=== PATIENT | female | born 1990 | race Caucasian/White ===

== ENCOUNTER 2018-08-01 13:57 | Emergency (ER) | payer SELFPAY ==
[2018-08-01 14:04] VITALS: BP 113/70; PULSE 94; RESP 16; TEMP 36.4; O2SAT 99; BMI 21.2
[2018-08-01 15:49] LABS: Amorphous Sediment Urine 1+; Bacteria Urine Few (2-10); Culture Indicated Urine Specimen Cultured; Mucus Urine 1+ (Negative); RBC Urine 1-5/HPF (0-5/HPF); Squamous Epithelial Cell Urine 1-5 /HPF; WBC Urine 0-1/HPF (0-5/HPF)
--- NOTE | 2018-08-01 16:39 | ED_ITS ---
HPI - Extremity Problem General Chief complaint: Extremity Problem,Nontraumatic Stated complaint: Thinks flu, left leg numb Time Seen by Provider: 08/01/18 16:06 Source: patient Mode of arrival: ambulatory History of Present Illness HPI Narrative: Patient is a 27-year-old female here for evaluation of generalized malaise. No headache. But states she does not not feel very well. She did have a flu shot this year. Patient also here for complaints of left lower extremity numbness and tingling. She states that she has been moving her home over the past couple days and has been bending over. Does not have any lower back pain. No bowel or bladder issues. No rashes. Has not tried anything for her symptoms prior to arrival. Related Data Home Medications Medication Instructions Recorded Confirmed paroxetine HCl 10 mg PO DAILY 08/01/18 08/01/18 Previous Rx's Medication Instructions Recorded meloxicam [Mobic] 7.5 mg PO DAILY #60 tab 08/01/18 prednisone 50 mg PO DAILY #5 tab 08/01/18 sucralfate [Carafate] 10 ml PO QID #420 ml 08/01/18 Allergies Allergy/AdvReac Type Severity Reaction Status Date / Time NSAIDS (Non-Steroidal Allergy Mild STOMACH Verified 08/01/18 14:09 Anti-Inflamma UPSET [NSAIDS (NON-STEROIDAL ANTI-INFLAMMA] Penicillins [PENICILLINS] Allergy Unknown HIVES Verified 08/01/18 14:09 Review of Systems Constitutional Reports fatigue, Denies fever(s) and Reports weakness ENT Ears, Nose, Mouth, and Throat: Denies disequilibrium Cardiovascular Denies chest pain and Denies dyspnea Respiratory Denies dyspnea Gastrointestinal Gastrointestinal: Denies abdominal pain, Denies nausea and Denies vomiting Genitourinary Denies dysuria, Denies urinary incontinence, Denies urinary hesitancy and Denies urinary urgency Musculoskeletal Reports tingling Comments: Tingling down the back of her left leg Integumentary/Breasts Denies rash Neurologic Reports tingling, Denies disequilibrium and Reports weakness Endocrine Reports fatigue Hematologic/Lymphatic Comments: Not on anticoagulation Allergic/Immunologic Denies urticaria PFSH Medical History Healthy adult (Acute) Surgical History No pertinent past surgical history (Acute) History of third molar tooth extraction Social History Smoking Status: Current every day smoker Social History Smoking Status: Current every day smoker Exam Initial Vital Signs Initial Vital Signs: Vital Signs Temperature 97.6 F 08/01/18 14:04 Pulse Rate 94 H 08/01/18 14:04 Respiratory Rate 16 08/01/18 14:04 Blood Pressure 113/70 08/01/18 14:04 Pulse Oximetry 99 08/01/18 14:04 Const General: cooperative, healthy appearing, comfortable, well developed, well groomed and No acute distress Orientation: alert, awake and oriented x3 HENMT Head: normal to inspection and normocephalic Resp Effort & Inspection: normal respiratory effort Auscultation: clear to auscultation bilaterally Cardio Rate: regular rate Rhythm: regular rhythm Pulses: radial pulses present GI Inspection: non-distended Palpation: soft, No firm and No tender Back/Spine/Pelvis Back: No CVA tenderness Cervical Spine: No cervical spinal tenderness Thoracic/Lumbar Spine: No thoracic spinal tenderness and No lumbar spinal tenderness Skin Lesions: no lesions Rashes: no rashes Neuro Cognition: normal cognition Speech: speech normal Gait: normal gait Motor: muscle tone normal throughout Sensory Exam: other (Patient with decreased sensation along the L5-S1 nerve root distribution left lower extremity) DTR's: Rt Patellar: 2+, Lt Patellar: 2+, Rt Ankle: 2+ and Lt Ankle: 0 Other: 5/5 strength bilateral lower extremity with testing the quadriceps. 5/5 strength right lower extremity with plantar flexion. 3/5 strength left lower extremity with plantar flexion. Extrem General: normal to inspection and capillary refill normal Course Orders Ordered: ED Orders 08/01/18 14:08 FLU A and B [Influenza A and B by PCR Rapid] Stat 08/01/18 15:30 Urine Culture Stat Urine Microscopic Stat Vital Signs - 8 hr 08/01/18 14:04 08/01/18 16:41 Temperature 97.6 F Pulse Rate 94 H 67 Respiratory Rate 16 21 Blood Pressure 113/70 Blood Pressure [Left Arm] 110/64 Pulse Oximetry 99 99 MDM - Extremity (Nontraumatic) Lab Data Attestation: I reviewed the patient's lab results. Lab Results 08/01/18 08/01/18 Range/Units 14:08 15:30 Urine RBC 1-5/hpf (0-5/HPF) Urine WBC 0-1/hpf (0-5/HPF) Ur Squamous Epith Cells 1-5 /hpf Amorphous Sediment 1+ Urine Bacteria Few (2-10) H (None) Urine Mucus 1+ H (Negative) Ur Culture Indicated? Specimen cultured Influenza A & B (PCR) Positive, type a A (Negative) Urine Dip Bedside Urine Glucose Negative Bedside Urine Bilirubin - Negative Bedside Urine Ketone + 15 Urine Specific [place] 1.020 Bedside Urine Occult Blood - Negative Bedside Urine pH 6.0 Bedside Urine Protein +/- 15 Bedside Urine Urobilinogen - Negative Bedside Urine Nitrite - Negative Bedside Urine Leukocytes - Negative Esterase MDM Narrative Medical decision making narrative: Patient is flu positive despite having received the flu immunization earlier this year. I suspect this is the cause of her generalized malaise. Patient does have L5-S1 nerve root distribution symptoms in the left lower extremity. She does have some weakness of plantar flexion left lower extremity. No other red flag signs of cauda equina. I did consider other conditions such as spinal epidural abscess given her other generalized malaise however since she is positive for the flu I feel that holding on any MRIs currently is warranted. She denies any IV drug use or recent spinal procedures. Patient does state that she has an allergy to nonsteroidal anti-inflammatories however it is not an allergy she has had a gastric ulcer in the past. She stated that she has taken ibuprofen when she has been given Carafate in the past without any problems. Will send home with Carafate and also meloxicam. Also sent home with a short course of steroids. She was given return precautions. We did discuss Tamiflu however after this discussion the patient stated that she would like to hold on taking this medication. We did discuss the expected course of her symptoms. She was instructed to contact her primary care doctor. She expressed understanding and agreement with plan. Discharge Plan Departure Patient Disposition: Home Clinical Impression: Flu, Radiculopathy Discharge Date/Time: 08/01/18 17:13 Interventions: ED Discharge Assessment Last Done: 08/01/18 17:13 Instructions: DI for Influenza -- Adult, DI for Lumbar Radiculopathy Activity Restrictions/Additional Instructions: Take the medication as directed. Make sure you increase her fluid intake. She can take Tylenol for any body aches. Contact your primary care doctor for a follow-up. Return to the emergency department for any new or worsening symptoms Prescriptions: New sucralfate [Carafate] 100 mg/mL suspension 10 ml PO QID Qty: 420 RF: 0 meloxicam [Mobic] 7.5 mg tablet 7.5 mg PO DAILY Qty: 60 RF: 0 prednisone 50 mg tablet 50 mg PO DAILY Qty: 5 RF: 0 No Action paroxetine HCl 10 mg Tablet 10 mg PO DAILY RF: 0 Stand Alone Forms: Work Release Note
[2018-08-01 16:41] VITALS: BP 110/64; PULSE 67; RESP 21; O2SAT 99
== END 2018-08-01 17:13 | disposition home or self-care (01) ==
PROVIDERS: Emergency Provider Emergency Medicine; PCP Physician Assistant
DX: J11.1 Influenza due to unidentified influenza virus with other respiratory manifestations (principal); M54.10 Radiculopathy, site unspecified
CPT/HCPCS: 81003; 81015; 87086; 87400; 99282; 99283

== ENCOUNTER → 2019-05-09 16:02 | Outpatient (CLI) | payer OTHER, MEDICAID, SELFPAY ==
[2019-05-09 16:34] LABS: Add Manual Diff / Slide Review NO; Basophils Absolute Auto 0 /uL (0-100); Basophils Percent Auto 0.4 % (0-2); Eosinophils Absolute Auto 100 /uL (0-450); Eosinophils Percent Auto 1.3 % (2-4); Hematocrit 37.6 % (36-46); Hemoglobin 13.4 g/dL (12.0-16.0); Lymphocytes Absolute Auto 1600 /uL (1100-4500); Lymphocytes Percent Auto 16.2 % (25-40); Mean Corpuscular HGB Conc 35.6 % (30-36); Monocytes Absolute Auto 600 /uL (0-900); Monocytes Percent Auto 6.5 % (3-14); Neutrophils Absolute Auto 7600 /uL (1500-7000); Neutrophils Percent Auto 75.6 % (50-75); Platelet Count 191 X10^3/uL (150-400); Red Blood Cell Count 4.32 X10^6/uL (4.0-5.2); Red Cell Distribution Width 13.1 % (11.6-14.8)
[2019-05-09 17:08] LABS: Appearance Urine UA CLEAR; Bilirubin Urine UA NEGATIVE (NEGATIVE); Color Urine UA YELLOW; Glucose Urine UA NEGATIVE (Negative); Ketones Urine UA TRACE (NEGATIVE); Leukocyte Esterase Urine UA NEGATIVE (NEGATIVE); Nitrite Urine UA NEGATIVE (Negative); Occult Blood Urine UA TRACE-LYSED (Negative); Protein Urine UA NEGATIVE (Negative); Specific Gravity Urine UA 1.025 (1.000-1.035); Urobilinogen Urine UA 0.2 E.U./dL (0.2)
[2019-05-09 18:00] LABS: Hepatitis B Surface Antigen NEGATIVE s/c (NEGATIVE); Rubella Antibody IgG 48.6 IU/mL (>15)
[2019-05-09 18:14] LABS: HIV 1 & 2 Ab/Ag 4th Gen Combo NEGATIVE (NEGATIVE); Hep C Virus Ab w/Reflex Quant NEGATIVE s/c (NEGATIVE)
[2019-05-11 17:38] LABS: RPR Screen Nonreactive (Nonreactive)
== END ==
PROVIDERS: PCP Physician Assistant; Visit Provider Obstetrics & Gynecology
DX: Z34.81 Encounter for supervision of other normal pregnancy, first trimester (principal)
CPT/HCPCS: 36415; 80055; 81003; 86787; 86803; 86850; 86900; 86901; 87077; 87086; 87147; 87389

== ENCOUNTER → 2019-05-12 16:29 | Outpatient (CLI) | payer OTHER, MEDICAID, SELFPAY ==
[2019-05-15 16:04] LABS: AFP, Serum 50.4 ng/mL; Brief History NTD NG; Cigarette Smoker NO; Collection Date 111419; Donated Egg NOT GIVEN; Donor Egg Age NOT GIVEN; Estriol, Free 1.66 ng/mL; Inhibin A, Dimeric 146 pg/mL; Maternal Weight 152 lbs; Number of Fetuses 1; Previous Pregnancy Down Syndro NOT GIVEN; hCG, MoM 0.67; hCG, Serum 14.3 IU/mL
== END ==
PROVIDERS: PCP Physician Assistant; Visit Provider Obstetrics & Gynecology
DX: Z34.82 Encounter for supervision of other normal pregnancy, second trimester (principal); Z3A.19 19 weeks gestation of pregnancy
CPT/HCPCS: 36415; 82105; 82677; 84702; 86336

== ENCOUNTER → 2019-05-27 08:39 | Outpatient (CLI) | payer OTHER, MEDICAID, SELFPAY ==
--- NOTE | 2019-05-27 08:41 | DI.US.S_ITS ---
PROCEDURE: US OB >= 14 WEEKS FETUS INDICATIONS: ANATOMY SCAN OUTSIDE/PRIOR DATING DATA: Last menstrual period (LMP): 12/30/18. LMP-based estimated date of delivery (CONSTANCE): 10/06/19. First dating scan (date and location): 03/08/19. Estimated date of delivery (CONSTANCE) from first dating scan: 10/08/19. TECHNIQUE: Real-time scanning was performed of the fetus, with image documentation and biometric measurements. COMPARISON: [facility], , OB >= 14 WEEKS FETUS, 05/12/2019, 16:17. FINDINGS: General: A single living intrauterine gestation is present. Presentation: Breech. Placenta: Placental position is anterior left lateral, without previa. Amniotic fluid index: 11.7 cm, normal range is 5-24 cm. heart rate: 136 beats per minute. Maternal cervical canal: 3.3 cm long. Normal lower limit is 2.5 cm. biometrics: Biparietal diameter: 20 weeks 1 day Head circumference: 20 weeks 5 days Abdominal circumference: 20 weeks 5 days Femur length: 19 weeks 5 days Estimated gestational age from initial scan: 20 weeks 6 days Composite gestational age from present scan: 20 weeks 3 days Estimated weight and percentile: 344 g; 18 percentile Measurement variability for biometric dating: +/- 7 days from 14 weeks to 15 weeks 6 days gestation, +/- 10 days from 16 weeks to 21 weeks 6 days gestation, +/- 2 weeks from 22 weeks to 27 weeks 6 days gestation, +/- 3 weeks for 28 weeks gestation or later. weight reference: 4500 g or EFW >90/95% is considered macrosomia or large for gestational age. EFW <10% is small for gestational age. EFW 5% or less is considered intra-uterine growth restriction. Anatomic survey: Neuro: Ventricles are non-dilated at less than 10 mm. Cisterna magna is normal at 3-11 mm. Cerebellum is normal in size and morphology. Nuchal skin fold: Normal at less than 6 mm between 14-21 weeks gestational age. Face: Nose and lips, facial profile are normal. Spine: Not well-visualized. Heart: 4-chambered heart is present, with normal ventricular outflow tracts. Left ventricular intracardiac focus Diaphragm: Diaphragm is intact. Stomach: Left-sided stomach is present. Kidneys: No hydronephrosis. Normal is less than 5 mm in 2nd trimester, less than 7 mm in 3rd trimester. Cord: 3-vessel cord has orthotopic insertion. Marginal placental cord insertion site. Marginal placental cord insertion site. Bladder: Normal in size. Extremities: All 4 extremities identified. IMPRESSION: 1. Single living IUP redemonstrated and interval growth is normal. 2. Echogenic intracardiac focus: 1.4-1.8 fold likelihood of Down syndrome. If isolated finding, consider aneuploidy screening with cell-free DNA. If aneuploidy screen is negative, no further evaluation needed. 3. spine not well visualized; otherwise normal anatomy. Followup recommended. 4. Marginal placental cord insertion site. Dictated by: Malik JEFFREY Interpreted: Robina Heredia MD on 05/27/2019 at 10:19 Approved by: Robina Heredia M.D. on 05/27/2019 at 16:51
== END ==
PROVIDERS: PCP Physician Assistant; Visit Provider Obstetrics & Gynecology
DX: Z36.89 Encounter for other specified antenatal screening (principal); Z34.82 Encounter for supervision of other normal pregnancy, second trimester; Z3A.20 20 weeks gestation of pregnancy
CPT/HCPCS: 76811

== ENCOUNTER → 2019-06-07 16:23 | Outpatient (CLI) | payer OTHER, MEDICAID, SELFPAY ==
[2019-06-07 19:04] LABS: Rubella Antibody IgG 48.6 IU/mL (>15)
== END ==
PROVIDERS: PCP Physician Assistant; Visit Provider Physician Assistant
DX: Z78.9 Other specified health status (principal); Z92.29 Personal history of other drug therapy
CPT/HCPCS: 36415; 86735; 86762; 86765

== ENCOUNTER → 2019-07-29 09:02 | Outpatient (CLI) | payer OTHER, MEDICAID, SELFPAY ==
[2019-07-29 12:27] LABS: Hematocrit 33.9 % (36-46); Hemoglobin 11.7 g/dL (12.0-16.0)
[2019-07-29 13:24] LABS: GTT (PREG) 1 Hour PP 50gm Dose 102 mg/dL (76-139)
== END ==
PROVIDERS: PCP Physician Assistant; Visit Provider Obstetrics & Gynecology
DX: Z34.82 Encounter for supervision of other normal pregnancy, second trimester (principal)
CPT/HCPCS: 36415; 82950; 85014; 85018

== ENCOUNTER → 2019-08-17 15:07 | Outpatient (CLI) | payer OTHER, MEDICAID, SELFPAY ==
--- NOTE | 2019-08-17 15:10 | DI.US.S_ITS ---
PROCEDURE: US OB FOLLOW UP INDICATIONS: REEVALUATE CORD INSERT,GROWTH,ECHOGENIC INTRACARDIAC FOCUS OUTSIDE/PRIOR DATING DATA: Last menstrual period (LMP): 12/30/18. LMP-based estimated date of delivery (CONSTANCE): 10/06/19. First dating scan (date and location): 03/08/19. Estimated date of delivery (CONSTANCE) from first dating scan: 10/08/19.. TECHNIQUE: Real-time scanning was performed of the fetus, with image documentation and biometric measurements. COMPARISON: , ABDOMEN, 10/23/2003, 12:38. [facility], OB >= 14 WEEKS FETUS, 05/12/2019, 16:17. [facility] OB >= 14 WEEKS FETUS, 05/27/2019, 9:09. [facility], OB >= 14 WEEKS FETUS, 07/26/2019, 16:12. FINDINGS: General: A single living intrauterine gestation is present. Presentation: Vertex. Placenta: Placental position is anterior, without previa. Amniotic fluid index: 10.3 cm, normal range is 5-24 cm. heart rate: 141 beats per minute. Maternal cervical canal: Not well-seen. biometrics: Biparietal diameter: 35 weeks 4 days Head circumference: 34 weeks 5 days Abdominal circumference: 33 weeks 1 day Femur length: 30 weeks 1 day Estimated gestational age from initial scan: 32 weeks 4 days Composite gestational age from present scan: 33 weeks Estimated weight and percentile: 2018 g; 42nd percentile Measurement variability for biometric dating: +/- 7 days from 14 weeks to 15 weeks 6 days gestation, +/- 10 days from 16 weeks to 21 weeks 6 days gestation, +/- 2 weeks from 22 weeks to 27 weeks 6 days gestation, +/- 3 weeks for 28 weeks gestation or later. weight reference: 4500 g or EFW >90/95% is considered macrosomia or large for gestational age. EFW <10% is small for gestational age. EFW 5% or less is considered intra-uterine growth restriction. Other: Solitary echogenic focus seen in prior examination not seen on today's study. The lateral ventricles are dilated bilaterally measuring up to 2.1 cm on the right and 1.8 cm on the left. The third ventricle is not clearly visualized. IMPRESSION: Normal interval growth from prior examination. Left ventricular intracardiac focus seen in prior examination not seen on today's study. hydrocephalus now visualized with the right ventricle measured 1.8 cm and the left 2.1 cm. Etiology is indeterminate on this examination and underlying chromosomal abnormality cannot be excluded. Tertiary care referral is recommended. Minnie Jeff RN for [place] given results and recommendations at 0857 hrs. 08/18/19. Dictated by: Malik Marcial [facility] Interpreted: Bruce Beckham MD on 08/18/2019 at 8:31 Approved by: Bruce Beckham M.D. on 08/18/2019 at 13:57
== END ==
PROVIDERS: PCP Physician Assistant; Referring Provider Obstetrics & Gynecology; Visit Provider Obstetrics & Gynecology
DX: Z36.2 Encounter for other antenatal screening follow-up (principal); O35.0XX0 Maternal care for (suspected) central nervous system malformation in fetus, not applicable or unspecified; Z3A.33 33 weeks gestation of pregnancy
CPT/HCPCS: 76816

== ENCOUNTER → 2019-08-30 16:13 | Outpatient (CLI) | payer OTHER, MEDICAID, SELFPAY ==
[2019-09-09 10:29] LABS: Miscellaneous to Univ of WA SEE SEPERATE REPORT
== END ==
PROVIDERS: PCP Physician Assistant; Referring Provider Obstetrics & Gynecology; Visit Provider Obstetrics & Gynecology
DX: O35.1XX1 Maternal care for (suspected) chromosomal abnormality in fetus, fetus 1 (principal)
CPT/HCPCS: 36415; 81420

== ENCOUNTER → 2020-02-02 09:12 | Outpatient (CLI) | payer OTHER, SELFPAY ==
[2020-02-03 02:36] LABS: Hepatitis B Surf AB Quant <3.1 mIU/mL (Immunity>9.9)
[2020-02-03 07:09] LABS: Varicella IgG Antibody 783 index (Immune >165)
[2020-02-05 20:36] LABS: QuantiFERON Mitogen Value 6.89 IU/mL (.); QuantiFERON Nil Value 0.11 IU/mL (.); QuantiFERON TB Gold Plus Negative (Negative); QuantiFERON TB1 Ag Value 0.11 IU/mL (.); QuantiFERON TB2 Ag Value 0.12 IU/mL (.)
== END ==
PROVIDERS: PCP Physician Assistant; Referring Provider Physician Assistant; Visit Provider Physician Assistant
DX: Z02.0 Encounter for examination for admission to educational institution (principal)
CPT/HCPCS: 36415; 86480; 86706; 86787

== ENCOUNTER → 2021-01-28 16:24 | Outpatient (CLI) | payer OTHER, MEDICAID, SELFPAY ==
[2021-02-01 15:38] LABS: QuantiFERON Mitogen Value >10.00 IU/mL (.); QuantiFERON Nil Value 0.04 IU/mL (.); QuantiFERON TB Gold Plus Negative (Negative); QuantiFERON TB1 Ag Value 0.05 IU/mL (.); QuantiFERON TB2 Ag Value 0.03 IU/mL (.)
== END ==
PROVIDERS: PCP Physician Assistant; Referring Provider Physician Assistant; Visit Provider Physician Assistant
DX: Z11.1 Encounter for screening for respiratory tuberculosis (principal)
CPT/HCPCS: 36415; 86480

== ENCOUNTER → 2022-02-11 15:24 | Outpatient (CLI) | payer OTHER, MEDICAID, SELFPAY ==
[2022-02-11 16:05] LABS: Add Manual Diff / Slide Review NO; Basophils Absolute Auto 0 /uL (0-100); Basophils Percent Auto 0.5 % (0-2); Eosinophils Absolute Auto 100 /uL (0-450); Eosinophils Percent Auto 1.1 % (2-4); Hematocrit 37.7 % (36-46); Hemoglobin 13.2 g/dL (12.0-16.0); Lymphocytes Absolute Auto 1700 /uL (1100-4500); Lymphocytes Percent Auto 20.6 % (25-40); Mean Corpuscular Hemoglobin 28.9 PG (26-34); Mean Corpuscular Volume 82.4 fL (80-100); Monocytes Absolute Auto 600 /uL (0-900); Neutrophils Absolute Auto 5900 /uL (1500-7000); Neutrophils Percent Auto 70.8 % (50-75); Platelet Count 223 X10^3/uL (150-400); Red Blood Cell Count 4.58 X10^6/uL (4.0-5.2); Red Cell Distribution Width 13.1 % (11.6-14.8); White Blood Cell Count 8.3 X10^3/uL (4.5-11.0)
[2022-02-11 16:15] LABS: Appearance Urine UA CLOUDY; Bilirubin Urine UA NEGATIVE (NEGATIVE); Color Urine UA YELLOW; Glucose Urine UA NEGATIVE (Negative); Ketones Urine UA NEGATIVE (NEGATIVE); Leukocyte Esterase Urine UA NEGATIVE (NEGATIVE); Nitrite Urine UA NEGATIVE (Negative); Occult Blood Urine UA NEGATIVE (Negative); Protein Urine UA NEGATIVE (Negative); Specific Gravity Urine UA 1.015 (1.000-1.035); Urobilinogen Urine UA 0.2 E.U./dL (0.2)
[2022-02-12 16:21] LABS: Hepatitis B Surface Antigen NEGATIVE s/c (NEGATIVE); Rubella Antibody IgG 53.1 IU/mL (>15)
[2022-02-12 16:33] LABS: HIV 1 & 2 Ab/Ag 4th Gen Combo NEGATIVE (NEGATIVE); Hep C Virus Ab w/Reflex Quant NEGATIVE s/c (NEGATIVE)
[2022-02-13 04:43] LABS: RPR Screen Non Reactive (Non Reactive)
[2022-02-13 06:06] LABS: Varicella IgG Antibody 741 index (Immune >165)
== END ==
PROVIDERS: Referring Provider Obstetrics & Gynecology; Visit Provider Obstetrics & Gynecology
DX: Z34.01 Encounter for supervision of normal first pregnancy, first trimester (principal)
CPT/HCPCS: 36415; 80055; 81003; 86787; 86803; 86850; 86900; 86901; 87086; 87389

== ENCOUNTER → 2022-04-28 14:23 | Outpatient (CLI) | payer OTHER, MEDICAID, SELFPAY ==
[2022-04-30 21:51] LABS: AFP Value 105.9 ng/mL (.); Gest Age on Col Date 21.9 weeks (.); Insulin Dep Diabetes No (.); OSBR Risk 1IN 3048 (.); Results Report (.); Test Results *Screen Negative* (.)
== END ==
PROVIDERS: PCP Physician Assistant; Referring Provider Physician Assistant Medical; Visit Provider Physician Assistant Medical
DX: Z34.82 Encounter for supervision of other normal pregnancy, second trimester (principal); Z3A.21 21 weeks gestation of pregnancy
CPT/HCPCS: 36415; 82105

== ENCOUNTER → 2022-05-16 15:06 | Outpatient (CLI) | payer OTHER, MEDICAID, SELFPAY ==
--- NOTE | 2022-05-16 15:07 | DI.US.S_ITS ---
PROCEDURE: US OB >= 14 WEEKS FETUS INDICATIONS: anatomy scan OUTSIDE/PRIOR DATING DATA: Last menstrual period (LMP): 11/26/2021 LMP-based estimated date of delivery (CONSTANCE): 09/02/2022 First dating scan (date and location): 02/11/2022 Estimated date of delivery (CONSTANCE) from first dating scan: 09/04/2022 The calculations are made using the working CONSTANCE of 09/04/2022. TECHNIQUE: Real-time scanning was performed of the fetus, with image documentation and biometric measurements. Endovaginal scanning: Not indicated COMPARISON: [facility], , OB >= 14 WEEKS FETUS, 07/26/2019, 16:12. FINDINGS: General: A single living intrauterine gestation is present. Presentation: Cephalic Placenta: Placental position is posterior, without previa. Amniotic fluid index: 20.5 cm, normal range is 5-24 cm. Single deepest vertical pocket is 6.5 cm. heart rate: 139 beats per minute. Maternal cervical canal: 4.1 cm long. Normal lower limit is 2.5 cm. biometrics: Biparietal diameter: 5.9 cm, 24 weeks, 1 day. Head circumference: 22.3 cm, 24 weeks, 2 days. Abdominal circumference: 19.2 cm, 24 weeks, 0 day. Femur length: 4.3 cm, 23 weeks, 6 days. Clinically estimated gestational age: 24 weeks, 1 day Composite gestational age from present scan: 24 weeks, 1 day Estimated weight and percentile: 649 grams, 34 percent. Anatomic survey: Neuro: Ventricles are non-dilated at less than 10 mm. Cisterna magna is normal at 3-11 mm. Cerebellum is normal in size and morphology. Nuchal skin fold: Normal at less than 6 mm between 14-21 weeks gestational age. Face: Nose and lips, facial profile are normal. Spine: No evidence for spina bifida. Heart: 4-chambered heart is present, with normal ventricular outflow tracts. Diaphragm: Diaphragm is intact. Stomach: Left-sided stomach is present. Kidneys: No hydronephrosis. Normal is less than 5 mm in 2nd trimester, less than 7 mm in 3rd trimester. Cord: 3-vessel cord has orthotopic insertion. Bladder: Normal in size. Extremities: All 4 extremities identified. Dilated umbilical vein is noted measures 9 mm in diameter. IMPRESSION: 1. Single live intrauterine gestation with fetus in cephalic presentation. heart rate is 139 beats per minute. Normal amount of amniotic fluid. Normal growth. Estimated weight is at 34 percent. 2. Normal anatomic survey. Mildly prominent umbilical vein with normal flow and is of questionable significance. We strive to produce accurate, complete, and clear reports of imaging services. To assist us in improving patient care, this report was composed using standard report templates and voice recognition software. Therefore, it may contain abnormal punctuation, insertions and/or omissions. Occasional wrong-word or sound-alike substitutions may occur. Though we review the report and make efforts to correct it, we do recommend that the report be read carefully in proper context to recognize any text inaccuracies. Dictated by: Cas Carmen M.D. on 05/16/2022 at 17:17 Approved by: Cas Carmen M.D. on 05/16/2022 at 17:20
== END ==
PROVIDERS: PCP Physician Assistant; Referring Provider Obstetrics & Gynecology; Visit Provider Obstetrics & Gynecology
DX: Z34.82 Encounter for supervision of other normal pregnancy, second trimester (principal); Z3A.24 24 weeks gestation of pregnancy
CPT/HCPCS: 76811

== ENCOUNTER → 2022-08-11 10:46 | Outpatient (CLI) | payer OTHER, MEDICAID, SELFPAY ==
[2022-08-12 09:00] LABS: Strep Grp B PCR NEG for Grp B Strep
[2022-08-12 11:00] LABS: Candida species Positive (Negative); Gardnerella vaginalis Negative (Negative); Trichomoas vaginalis Negative (Negative)
[2022-08-13 17:33] LABS: Chlamydia trachomatis Negative (Negative); Mycoplasma genitalium Negative (Negative); Neisseria gonorrhoeae Negative (Negative)
== END ==
PROVIDERS: PCP Physician Assistant; Visit Provider Physician Assistant Medical
DX: N89.8 Other specified noninflammatory disorders of vagina (principal); O26.893 Other specified pregnancy related conditions, third trimester; Z3A.36 36 weeks gestation of pregnancy
CPT/HCPCS: 87480; 87491; 87510; 87563; 87591; 87653; 87660

== ENCOUNTER 2022-09-04 11:08 | Inpatient (IN) | payer OTHER, MEDICAID, SELFPAY ==
[2022-09-04 12:05] VITALS: BP 132/78
[2022-09-04 13:04] LABS: Add Manual Diff / Slide Review NO; Basophils Absolute Auto 0 /uL (0-100); Basophils Percent Auto 0.2 % (0-2); Eosinophils Absolute Auto 100 /uL (0-450); Eosinophils Percent Auto 0.7 % (2-4); Hematocrit 35.4 % (36-46); Hemoglobin 11.5 g/dL (12.0-16.0); Lymphocytes Absolute Auto 1600 /uL (1100-4500); Lymphocytes Percent Auto 15.3 % (25-40); Mean Corpuscular HGB Conc 32.5 % (30-36); Mean Corpuscular Hemoglobin 24.1 PG (26-34); Mean Corpuscular Volume 74.2 fL (80-100); Monocytes Absolute Auto 600 /uL (0-900); Neutrophils Absolute Auto 8000 /uL (1500-7000); Neutrophils Percent Auto 77.8 % (50-75); Platelet Count 206 X10^3/uL (150-400); Red Blood Cell Count 4.77 X10^6/uL (4.0-5.2); Red Cell Distribution Width 15.4 % (11.6-14.8); White Blood Cell Count 10.3 X10^3/uL (4.5-11.0)
[2022-09-04] MEDS: LACTATED RINGERS 1,000 ML 100 ML IV (15:39)
[2022-09-04] MEDS: OXYTOCIN PREMIX 30 UNIT/500 ML PLAST..BAG IV (15:39)
[2022-09-04] MEDS: fentaNYL 100 MCG/2 ML INJ IV (17:16)
--- NOTE | 2022-09-04 18:23 | PM.OBHP.IH.1 ---
OB HPI Date/Time Date of admission: 09/04/22 Date Patient Seen: 09/04/22 Time Patient Seen: 12:50 History of Present Condition Chief complaint: Observation CONSTANCE Calculator Estimated Delivery Date Method Current WG Current Estimate 09/02/22 LMP (Certain) 40w 2d Other Estimates 09/04/22 Ultrasound #1 40w 0d Estimated Gestational Age (weeks): 40+2 : 6 Para: 2 care: good care, initiated at week # (11), number of visits (8) and pounds weight gain (35) Dating criteria OB: LMP confirmed by 1st trimester US Ultrasounds: normal 1st trimester US and normal mid trimester US Obstetrical complications: none Medical complications OB: none Indications Indication for induction OB: other (Multip, advanced cervical dilation) Preadmission Labs Last OB Lab Results: Blood Type A Positive 09/04/22 11:30 Antibody Screen Negative 09/04/22 11:30 Hematocrit 35.4 % (36-46) L 09/04/22 11:30 Hemoglobin 11.5 g/dL (12.0-16.0) L 09/04/22 11:30 Hepatitis B Surface Antigen Negative s/c (NEGATIVE) 02/11/22 15:34 Hepatitis C Antibody Negative s/c (NEGATIVE) 02/11/22 15:34 Rubella Antibody 53.1 IU/mL (>15) 02/11/22 15:34 Varicella-Zoster IgG Antibody 741 index (Immune >165) 02/11/22 15:34 Glucose 1 Hour 102 mg/dL (76-139) 07/29/19 10:37 Group B Streptococcus (PCR) Neg for grp b strep 08/11/22 10:46 -: Chlamydia screen: negative, Gonorrhea screen: negative and Urine: negative -: PAP smear: Normal Genetic Screens: Cell-free DNA: Normal (normal female) and Alpha-fetoprotein: Normal External Labs -: Urine: negative Prior (ies) Past Pregnancies Del. Date GA/Weeks Labor Lgth Wt Sex Route Outcome Anesthesia Place Delv Breastfeed Preg Comp Name 06/29/09 6 elective 05/29/12 6 elective 12/12/15 40.5 10 7 lb 8 oz Female vaginal live - full term IH 2-3 weeks braulio [place]ano 01/28/16 6 elective 09/30/19 39 20 6 lb 15 oz Male live - full term UW n/a anomaly Jimmie Delivery Date: 06/29/09 Last Updated by: Evelin Snow RN D&C Delivery Date: 05/29/12 Last Updated by: Evelin Snow RN D&C Delivery Date: 01/28/16 Last Updated by: Evelin Snow RN D&C Delivery Date: 09/30/19 Last Updated by: Evelin Snow RN hydrocephalus, agenesis of corpus callosum Evaluation Evaluation Baseline heart rate: 130 Variability: Moderate (11-25) monitor accelerations: Present Monitor Decelerations: Absent Uterine Contraction Intensity: Mild Status: Category l Dilation (cm): 5 Effacement (%): 85 station: 0 Position of cervix: mid Consistency: medium PFSH Medical History (Updated 02/19/22 @ 22:35 by Melissa Vang) Anxiety Depression Healthy adult IUD (intrauterine device) in place Threatened in early Vaginal delivery Surgical History (Updated 02/19/22 @ 22:35 by Melissa Vang) History of third molar tooth extraction (~2008) Family History (Updated 02/19/22 @ 22:35 by Melissa Vang) Grandmother Diabetes mellitus Grandmother Diabetes mellitus Grandfather Diabetes mellitus Father Cardiomyopathy Mother Scoliosis Brother Hypertension Social History marital status: unmarried,living together number of children: 2 household members: significant other and children lives independently: Yes housing: house pets and animals: Yes (1 cat; partner manages litter box) education level: college (Associate's degree) occupational status: employed 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 [place] needs: No travel history: over 6 months ago seatbelt use: always water heater temp set < 120 deg: No working smoke detector in home: Yes fire extinguisher in home: Yes carbon monox detector in home: Yes firearms in home: No do you feel safe at home: Yes Smoking Status: Current every day smoker quit status: considering quitting (trying to quit, down to 2-3/day) second hand exposure: Yes (s/o smokes, but only outdoors and in garage) alcohol intake: former (occasionally but not while ) substance use type: marijuana (instructed not to use during ) during the past year weight has: remained stable well-balanced diet: rarely or never daily servings fruits/ve-1 caffeine: Yes (1 cup/day) Type(s) of exercise: none and walking frequency: 1-2 times per week Meds Home Medications and Allergies Home Medications Medication Instructions Recorded Confirmed Type No Known Home Medications 09/04/22 09/04/22 History Allergies Allergy/AdvReac Type Severity Reaction Status Date / Time Penicillins [PENICILLINS] Allergy Severe Anaphylaxis Verified 09/02/22 13:51 NSAIDS (Non-Steroidal AdvReac Mild STOMACH Verified 09/02/22 13:51 Anti-Inflamma UPSET [NSAIDS (NON-STEROIDAL ANTI-INFLAMMA] OB Exam Narrative Exam Narrative: Generally: Patient is starting to get uncomfortable with contractions Fundal height: 39 cm Extremities: No edema Objective Labs 09/04/22 11:30 Labs: Laboratory Results - last 24 hr 09/04/22 09/04/22 11:30 11:30 WBC 10.3 RBC 4.77 Hgb 11.5 L Hct 35.4 L MCV 74.2 L MCH 24.1 L MCHC 32.5 RDW 15.4 H Plt Count 206 Neut % (Auto) 77.8 H Lymph % (Auto) 15.3 L [place] % (Auto) 6.0 Eos % (Auto) 0.7 L Baso % (Auto) 0.2 Neut # (Auto) 8000 H Lymph # (Auto) 1600 [place] # (Auto) 600 Eos # (Auto) 100 Baso # (Auto) 0 Blood Type A Positive Antibody Screen Negative Assessment and Plan Assessment and Plan Assessment and Plan narrative: Assessment: 31-year-old 6 para 2 at 40-,2/7 weeks gestation for induction of labor GBS negative Patient would like to go natural Plan: Artificial rupture of membranes with copious clear amniotic fluid Expected management to spontaneous vaginal delivery Time Spent with Patient Total time spent with greater than 50% in coordination of care (as documented) at patient's floor/unit and/or counseling patient:: 15-24 minutes
--- NOTE | 2022-09-04 18:28 | PM.OBPNLAB ---
Date/Time Date Patient Seen: 09/04/22 Time Patient Seen: 17:45 Pain Control Pain control: other (Getting very uncomfortable) Pelvic Exam Dilation (cm): 7 Effacement (%): 90 station: +1 Amniotic membrane status: Ruptured Contractions Contractions on admission: irregular Monitor mode: External Pitocin rate (mU/min): 0 Contraction frequency (min): 3 Contraction duration (min): 1 Contraction pattern: Regular Contraction intensity: Strong/Firm Status status: Category l Heart Rate Baseline: 125 Monitor Accelerations: Present Monitor Decelerations: Early and Late (few) Monitor Variability: Moderate Assessment and Plan Assessment: active labor Plan: continuous present management Comments: Expectant management to
--- NOTE | 2022-09-04 18:41 | P.PCNOB_ITS ---
Labor & Delivery Delivery date: 09/04/22 Intrapartal Events: Deceleration (variable and a few late) Cervical ripening method: none Induction method: AROM Delivery augmentation: pitocin Delivery monitor: external FHT and external uterine Route of delivery: Episiotomy description: None L&D Laceration Description: None Quantitative Blood Loss: 150 Anesthesia Type: None Complications: None Narrative: Patient complete and pushed with 2 contractions. At 6:33 p.m., a live female infant delivered spontaneously in the EDMRA presentation, over an intact perineum. The remainder of the body delivered without difficulty and was placed on mom's abdomen. There was a cord around the baby's right foot. Pitocin was started in the IV fluids. After the cord stopped pulsing, the cord was double clamped and cut. Cord bloods were obtained. The placenta delivered intact with a three- vessel cord at 6:37 p.m.. No lacerations. The fundus was massaged to firm. QBL 150 cc. Apgars 9 at 1 minute and 9 at 5 minutes. . Mom and stable to recovery. [place] Baby 1: gender: Female Presentation: vertex Position: Left Occiput Anterior Placenta delivery description: Spontaneous Cord Vessel Description: 3 Vessels and Around Body x1 (right foot) score (1 min): 9 score (5 min): 9 weight: 6 lb 5.5 oz Plan for aftercare: Routine care
[2022-09-04] MEDS: ONDANSETRON 4 MG/2 ML INJ IV (20:45)
[2022-09-04] MEDS: METHYLERGONOVINE 0.2 MG/ML VIAL IM (20:48)
[2022-09-04] MEDS: TRANEXAMIC ACID 1,000 MG in SODIUM CHLORIDE 0.9% 100 ML 200 MG IV (21:04)
[2022-09-04] MEDS: ACETAMINOPHEN 325 MG TABLET 650 MG PO (22:13)
[2022-09-05] MEDS: ACETAMINOPHEN 325 MG TABLET 650 MG PO ×2 (05:54→12:51)
[2022-09-05] MEDS: OXYCODONE IR 5 MG TABLET PO ×2 (05:58→12:51)
--- NOTE | 2022-09-05 06:21 | P.DS_ITS ---
Discharge Providers Provider Date of admission: 09/04/22 11:08 Discharge Date: 09/05/22 Consults: 09/05/22 18:44 Consult to Media Services Coordinator Routine Comment: Discharge provider: Minnie Shepherd CNM, ARNP Summary Hospital Course Date Patient Seen: 09/05/22 Time Patient Seen: 06:22 Diagnoses: Z34.03 - Normal , third trimester Z39.1 - care Hospital Course: Elective IOL at 40w2d with pitocin and AROM. NSVB of vigorous baby girl. QBL 537 mL with pitocin, methergine and TXA given for clots expressed in early hours. Intact perineum. Normal postpatum course. History of anxiety and depression; used to take Effexor 150 mg daily and requests to restart now after confirming safe with . Peripartum Data Delivery Method: Natural Vaginal Laceration Description: None Episiotomy description: None [place] 1: Gender: Female Disposition of : home Discharge Diagnosis (1) Depression: Status: Acute Problem Details: normally stable on Effexor, weaned off for , desires restarting medicat ion now (2) Anxiety: Status: Acute Problem Details: see depression plan above (3) (normal spontaneous vaginal delivery): Start Date: 09/04/22 Start Time: 18:33 Status: Acute Problem Details: Normal care Status at Discharge Cognitive/behavioral status at discharge: at baseline, oriented Functional status at discharge: independent ambulation Overall status at discharge: patient is back to baseline Time Spent with Patient Time attestation: Total time spent providing and/or coordinating discharge services: Time spent: Less than 30 minutes Specific discharge activities: Reviewed warning signs including bleeding, mood, blood clots. Discussed breast feeding, self care in early period. Objective Labs 09/05/22 06:23 Labs: Laboratory Results - last 24 hr 09/04/22 09/04/22 11:30 11:30 WBC 10.3 RBC 4.77 Hgb 11.5 L Hct 35.4 L MCV 74.2 L MCH 24.1 L MCHC 32.5 RDW 15.4 H Plt Count 206 Neut % (Auto) 77.8 H Lymph % (Auto) 15.3 L Thomas % (Auto) 6.0 Eos % (Auto) 0.7 L Baso % (Auto) 0.2 Neut # (Auto) 8000 H Lymph # (Auto) 1600 Thomas # (Auto) 600 Eos # (Auto) 100 Baso # (Auto) 0 Blood Type A Positive Antibody Screen Negative Exam Vital Signs (past 8 hours): 100/49 98.3 F 56 bpm 16 /min 97% Const General: healthy appearing and comfortable Nutritional Appearance: well nourished and thin Orientation: oriented x3 Neck Neck: normal visual inspection and full ROM Chest Breast inspection: normal inspection of the breasts (with everted nipples, no damage) Resp Effort & Inspection: normal respiratory effort GI Inspection: normal to inspection Other: Fundus firm @ U Skin General: no rashes or lesions noted Neuro General: normal light touch, pain and propioception Cognition: normal cognition Speech: speech normal Gait: normal gait Extrem General: normal to inspection, full ROM, capillary refill normal and no pedal edema Psych Appearance: grossly normal Discharge Plan Discharge Plan Patient Disposition: Home Provider Discharge Comment: Plan follow up with Dr. Myers in 6 weeks. Call office to schedule. Discharge orders & Medications Prescriptions: New venlafaxine [Effexor XR] 150 mg capsule,extended release 24hr 150 mg PO DAILY MDD 150 mg Qty: 1 0RF No Action No Known Home Medications Follow up/Referrals: Faye Myers MD [Physician] - (Call office to schedule 6 week PPV) Minnie Shepherd CNM, ALUMINUM FABRICATION SUPERVISOR [[facility]] - (Call [facility] if you need evaluation of baby girl's lip and tongue tie/ support) Diet/Activity/Treatments Diet: Diet as Tolerated Activity: low hurtado for 2 weeks Skin/Wound/Dressing Care Skin care: usual care. Report to your healthcare provider any signs of infection, such as:: chills, fever, unusual drainage and unusual redness Visit Report/Discharge Packet Instructions: Labor and Delivery, Vaginal , DI for Labor and Delivery, Vaginal , DI for Depression, Infant Feeding: Breast or Bottle? Stand Alone Forms: Patient Portal/API, Stroke Signs & Symptoms
[2022-09-05 06:44] LABS: Hematocrit 33.8 % (36-46); Hemoglobin 11.1 g/dL (12.0-16.0)
[2022-09-05 14:15] VITALS: BP 105/62; PULSE 68; RESP 18; TEMP 37.2
== END 2022-09-05 14:15 | disposition home or self-care (01) | DRG 560 ==
PROVIDERS: Admitting Provider Obstetrics & Gynecology; Referring Provider Obstetrics & Gynecology; Visit Provider Obstetrics & Gynecology
DX: O76 Abnormality in fetal heart rate and rhythm complicating labor and delivery (principal); Z3A.40 40 weeks gestation of pregnancy; Z37.0 Single live birth; O99.344 Other mental disorders complicating childbirth; F41.8 Other specified anxiety disorders; F32.A Depression, unspecified
CPT/HCPCS: 36415; 59050; 59409; 85014; 85018; 85025; 86850; 86900; 86901; G0379; J2210; J2405; J2590; J3010

== ENCOUNTER 2023-01-14 22:22 | Emergency (ER) | payer OTHER, MEDICAID, SELFPAY ==
[2023-01-14] VITALS (20 sets, daily range): BP systolic 112–146; BP diastolic 63–88; PULSE 94–128; RESP 4–32; TEMP 36.5; O2SAT 51–100
[2023-01-14] MEDS: NALOXONE 0.4 MG/ML VIAL 0.8 MG IV ×2 (22:25→22:27)
[2023-01-14] MEDS: ONDANSETRON 4 MG/2 ML INJ IV ×2 (22:34→22:35)
[2023-01-14] MEDS: SODIUM CHLORIDE 0.9% 1,000 ML 1000 ML IV (22:35)
--- NOTE | 2023-01-14 22:36 | DI.RAD.S_ITS ---
PROCEDURE: XR CHEST 1V INDICATIONS: Shortness of breath TECHNIQUE: One view of the chest was acquired. COMPARISON: [facility], , CHEST 2 VIEW, 07/18/2010, 9:27. FINDINGS: Surgical changes and devices: None. Lungs and pleura: Lungs are clear. No pleural effusions or pneumothorax. Mediastinum: Mediastinal contours appear normal. Heart size is normal. Bones and chest wall: No suspicious bony lesions. There are few oval densities projecting over the left hemithorax which are likely external. IMPRESSION: 1. No acute cardiopulmonary disease. Dictated by: Rahul Leonard M.D. on 01/14/2023 at 23:30 Approved by: Rahul Leonard M.D. on 01/14/2023 at 23:31
--- NOTE | 2023-01-14 22:40 | ED.GENADULT ---
HPI - General Adult General Chief complaint: Unresponsive Stated complaint: overdose Time Seen by Provider: 01/14/23 22:39 Source: other Mode of arrival: Family Vehicle Limitations: altered mental status History of Present Illness HPI narrative: Patient is a 32-year-old female who was brought to the emergency department by private vehicle by a family friend. The only report that we initially received was that the patient had potentially overdosed. We are unsure as to exactly what she took or if in fact she took anything. Patient is unable to provide any HPI. Eventually we were able to talk to the patient's fiancee who states that he was at home with the patient and their kids this evening. He went to go take a shower and when he came out he found her altered and unresponsive. He is unsure exactly what she took. There was no signs of any trauma. He contacted the family friend bring her to the emergency department. Unsure why patient's jessee did not call EMS. Related Data Previous Rx's Medication Instructions Recorded venlafaxine 150 mg 150 mg PO DAILY depression and 09/05/22 capsule,extended release 24 hr anxiety #1 cap (Effexor XR) norethindrone-e.estradiol 1 tab PO DAILY #28 tabs 10/13/22 triphasic 0.5 mg/0.75 mg/1 mg-35 mcg tablet (Ortho-Novum (28)) Allergies Allergy/AdvReac Type Severity Reaction Status Date / Time Penicillins [PENICILLINS] Allergy Severe Anaphylaxis Verified 10/13/22 15:06 NSAIDS (Non-Steroidal AdvReac Mild STOMACH Verified 10/13/22 15:06 Anti-Inflamma UPSET [NSAIDS (NON-STEROIDAL ANTI-INFLAMMA] Review of Systems Review of Systems ROS Unobtainable: Unobtainable due to medical condition Patient History Medical History Anxiety Depression Healthy adult IUD (intrauterine device) in place Threatened in early Vaginal delivery Surgical History (Updated 02/19/22 @ 22:35 by Melissa Vang) History of third molar tooth extraction (~2008) Family History (Updated 02/19/22 @ 22:35 by Melissa Vang) Grandmother Diabetes mellitus Grandmother Diabetes mellitus Grandfather Diabetes mellitus Father Cardiomyopathy Mother Scoliosis Brother Hypertension Social History marital status: unmarried,living together number of children: 2 household members: significant other and children lives independently: Yes housing: house pets and animals: Yes (1 cat; partner manages litter box) education level: college (Associate's degree) occupational status: employed 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 octavia needs: No travel history: over 6 months ago seatbelt use: always water heater temp set < 120 deg: No working smoke detector in home: Yes fire extinguisher in home: Yes carbon monox detector in home: Yes firearms in home: No do you feel safe at home: Yes Smoking Status: Current every day smoker quit status: considering quitting (trying to quit, down to 2-3/day) second hand exposure: Yes (s/o smokes, but only outdoors and in garage) alcohol intake: former (occasionally but not while ) substance use type: marijuana (instructed not to use during ) during the past year weight has: remained stable well-balanced diet: rarely or never daily servings fruits/ve-1 caffeine: Yes (1 cup/day) Type(s) of exercise: none and walking frequency: 1-2 times per week Smoking Status: Current every day smoker alcohol intake frequency: holidays/special occasions only Substance Use Type: marijuana Exam Initial Vital Signs Initial Vital Signs: Vital Signs Pulse Rate 112 H 01/14/23 22:27 Pulse Oximetry 98 01/14/23 22:27 Const General: in distress and ill appearing [facility] Head: normal to inspection and normocephalic Resp Other: Minimal respirations, clear breath sounds with the respirations she did have. Cardio Rate: regular rate Rhythm: regular rhythm GI Inspection: non-distended Palpation: soft Skin Other: Mottled, cool, blue skin Neuro Other: Patient is not responsive. Does not respond to painful stimuli. Extrem Other: No gross deformities Course Orders Ordered: ED Orders 01/14/23 22:36 XR chest 1V Stat EKG-12 Lead Stat 01/14/23 23:19 CT head/brain wo con Stat 01/14/23 23:22 Respiratory Panel (Film Array) Stat 01/15/23 00:55 Basic Metabolic Panel Stat Complete Blood Count AUTO DIFF Stat 01/15/23 04:15 Urine Culture Stat Urine Drug Screen, Rapid Stat Urine Microscopic Stat Naloxone HCl (Naloxone 0.4 Mg/Ml Vial) 0.8 mg IV Q2MIN PRN PRN Reason: Opiate Reversal Last Admin: 01/14/23 22:27 Dose: 0.8 mg Documented By: Admin: 01/14/23 22:25 Dose: 0.8 mg Documented By: GEORGETTE Discontinued Medications Sodium Chloride (Normal Saline 0.9%) 1,000 mls @ 1,000 mls/hr IV BOLUS ONE Stop: 01/14/23 23:47 Last Infusion: 01/14/23 23:28 Dose: 0 mls/hr Documented By: Admin: 01/14/23 22:35 Dose: 1,000 mls/hr Documented By: GEORGETTE Sodium Chloride (Normal Saline 0.9%) 1,000 mls @ 1,000 mls/hr IV BOLUS ONE Stop: 01/15/23 02:41 Last Infusion: 01/15/23 03:08 Dose: 0 mls/hr Documented By: Admin: 01/15/23 01:45 Dose: 1,000 mls/hr Documented By: GEORGETTE Naloxone HCl (Naloxone 1 Mg/Ml Syringe) 0.8 mg IV NOW ONE Stop: 01/14/23 22:33 Last Admin: 01/14/23 23:31 Dose: Not Given Documented By: GEORGETTE Ondansetron HCl (Ondansetron 4 Mg/2 Ml Inj) 4 mg IV NOW ONE Stop: 01/14/23 22:34 Last Admin: 01/14/23 22:35 Dose: 4 mg Documented By: GEORGETTE Ondansetron HCl (Ondansetron 4 Mg/2 Ml Inj) 4 mg IV NOW ONE Stop: 01/14/23 22:41 Last Admin: 01/14/23 22:34 Dose: 4 mg Documented By: GEORGETTE Ondansetron HCl (Ondansetron 4 Mg/2 Ml Inj) 4 mg IV NOW ONE Stop: 01/15/23 01:55 Last Admin: 01/15/23 01:55 Dose: 4 mg Documented By: GEORGETTE Vital Signs Vital signs: Vital Signs - 8 hr 01/14/23 22:29 01/14/23 22:27 01/14/23 22:28 Temperature Pulse Rate 112 H Respiratory Rate 4 L Blood Pressure 138/79 Pulse Oximetry 51 L 98 Oxygen Delivery Method Room Air Oxygen Flow Rate 01/14/23 22:28 01/14/23 22:30 01/14/23 22:30 Temperature Pulse Rate 120 H 118 H Respiratory Rate 26 H 28 H Blood Pressure 146/83 H Pulse Oximetry 99 96 Oxygen Delivery Method Oxygen Flow Rate 01/14/23 22:35 01/14/23 22:35 01/14/23 22:40 Temperature Pulse Rate 128 H Respiratory Rate 16 Blood Pressure 125/88 130/74 Pulse Oximetry 97 Oxygen Delivery Method Oxygen Flow Rate 01/14/23 22:40 01/14/23 22:44 01/14/23 22:45 Temperature 97.7 F Pulse Rate 121 H 116 H Respiratory Rate 23 20 Blood Pressure 129/86 Pulse Oximetry 100 100 Oxygen Delivery Method Nasal Cannula Oxygen Flow Rate 4 01/14/23 22:45 01/14/23 22:50 01/14/23 22:50 Temperature Pulse Rate 112 H 106 H Respiratory Rate 21 32 H Blood Pressure 133/86 Pulse Oximetry 100 100 Oxygen Delivery Method Oxygen Flow Rate 01/14/23 22:53 01/14/23 22:53 01/14/23 22:55 Temperature Pulse Rate 98 H Respiratory Rate Blood Pressure 125/83 125/83 Pulse Oximetry 100 Oxygen Delivery Method Oxygen Flow Rate 01/14/23 22:55 01/14/23 23:00 01/14/23 23:00 Temperature Pulse Rate 99 H 94 H Respiratory Rate 15 Blood Pressure 117/76 Pulse Oximetry 99 97 Oxygen Delivery Method Oxygen Flow Rate 01/14/23 23:05 01/14/23 23:05 01/14/23 23:10 Temperature Pulse Rate 95 H Respiratory Rate 15 Blood Pressure 114/75 112/71 Pulse Oximetry 97 Oxygen Delivery Method Oxygen Flow Rate 01/14/23 23:10 01/14/23 23:15 01/14/23 23:15 Temperature Pulse Rate 95 H 95 H Respiratory Rate 17 14 Blood Pressure 112/65 Pulse Oximetry 98 99 Oxygen Delivery Method Oxygen Flow Rate 01/14/23 23:20 01/14/23 23:20 01/14/23 23:24 Temperature Pulse Rate 97 H 96 H Respiratory Rate 13 16 Blood Pressure 113/63 Pulse Oximetry 99 98 Oxygen Delivery Method Nasal Cannula Oxygen Flow Rate 2 01/14/23 23:25 01/14/23 23:25 01/14/23 23:41 Temperature Pulse Rate 95 H 104 H Respiratory Rate 18 Blood Pressure 116/64 Pulse Oximetry 99 99 Oxygen Delivery Method Oxygen Flow Rate 01/14/23 23:47 01/14/23 23:47 01/15/23 00:00 Temperature Pulse Rate 100 H Respiratory Rate 17 Blood Pressure 114/68 113/68 Pulse Oximetry 98 Oxygen Delivery Method Oxygen Flow Rate 01/15/23 00:00 01/15/23 00:15 01/15/23 00:15 Temperature Pulse Rate 98 H 97 H Respiratory Rate 17 16 Blood Pressure 120/67 Pulse Oximetry 97 97 Oxygen Delivery Method Nasal Cannula Oxygen Flow Rate 2 01/15/23 00:30 01/15/23 00:30 01/15/23 00:45 Temperature Pulse Rate 97 H Respiratory Rate 17 Blood Pressure 119/68 120/72 Pulse Oximetry 98 Oxygen Delivery Method Oxygen Flow Rate 01/15/23 00:45 01/15/23 01:23 01/15/23 01:24 Temperature Pulse Rate 96 H Respiratory Rate 15 14 Blood Pressure Pulse Oximetry 97 90 L 94 Oxygen Delivery Method Room Air Room Air Nasal Cannula Oxygen Flow Rate 2 01/15/23 01:00 01/15/23 01:00 01/15/23 01:30 Temperature Pulse Rate 99 H Respiratory Rate 18 Blood Pressure 122/69 113/68 Pulse Oximetry 93 Oxygen Delivery Method Oxygen Flow Rate 01/15/23 01:30 01/15/23 02:00 01/15/23 02:00 Temperature Pulse Rate 100 H 97 H Respiratory Rate 19 18 Blood Pressure 114/70 Pulse Oximetry 94 99 Oxygen Delivery Method Oxygen Flow Rate 01/15/23 02:30 01/15/23 02:30 01/15/23 03:00 Temperature Pulse Rate 98 H Respiratory Rate 18 Blood Pressure 119/67 116/63 Pulse Oximetry 97 Oxygen Delivery Method Oxygen Flow Rate 01/15/23 03:00 01/15/23 03:30 01/15/23 03:30 Temperature Pulse Rate 102 H 105 H Respiratory Rate 17 16 Blood Pressure 113/65 Pulse Oximetry 97 95 Oxygen Delivery Method Oxygen Flow Rate 01/15/23 04:00 01/15/23 04:00 01/15/23 04:30 Temperature Pulse Rate 103 H Respiratory Rate 16 Blood Pressure 116/62 98/55 L Pulse Oximetry 95 Oxygen Delivery Method Room Air Oxygen Flow Rate 01/15/23 04:30 01/15/23 05:00 01/15/23 05:00 Temperature Pulse Rate 96 H 95 H Respiratory Rate 19 18 Blood Pressure 100/59 L Pulse Oximetry 93 95 Oxygen Delivery Method Room Air Oxygen Flow Rate Medical Decision Making Medical Records Medical records reviewed: Yes I reviewed the patient's medical records. Lab Data Lab results reviewed: Yes I reviewed the patient's lab results. 01/15/23 00:55 01/15/23 00:55 Labs: Lab Results 01/14/23 01/14/23 01/14/23 Range/Units 20:25 20:25 20:25 WBC 18.5 H (4.5-11.0) X10^3/uL RBC 4.69 (4.0-5.2) X10^6/uL Hgb 12.8 (12.0-16.0) g/dL Hct 39.7 (36-46) % MCV 84.7 (80-100) fL MCH 27.2 (26-34) PG MCHC 32.1 (30-36) % RDW 15.1 H (11.6-14.8) % Plt Count 250 (150-400) X10^3/uL Neut % (Auto) 40.8 L (50-75) % Lymph % (Auto) 47.0 H (25-40) % Hendricks % (Auto) 8.9 (3-14) % Eos % (Auto) 2.7 (2-4) % Baso % (Auto) 0.6 (0-2) % Neut # (Auto) 7600 H (0251-2148) /uL Lymph # (Auto) 8700 H (9431-2112) /uL [place] # (Auto) 1700 H (0-900) /uL Eos # (Auto) 500 H (0-450) /uL Baso # (Auto) 100 (0-100) /uL PT 11.0 (10.1-12.7) SECONDS INR 1.0 (0.9-1.3) Sodium 133 L (137-145) mmol/L Potassium 4.7 (3.4-5.1) mmol/L Chloride 99 (98-107) mmol/L Carbon Dioxide 16 L (22-32) mmol/L BUN 18 H (7-17) mg/dL Creatinine 1.07 H (0.52-1.04) mg/dL Estimated GFR > 60 (>60) mL/min BUN/Creatinine Ratio 16.8 (6-22) Glucose 348 H (70-100) mg/dL Lactate (0.7-2.1) mmol/L Calcium 8.4 (8.4-10.2) mg/dL Total Bilirubin 0.3 (0.2-1.3) mg/dL AST 69 H (14-36) IU/L ALT 52 H (<35) IU/L Alkaline Phosphatase 49 (38-126) U/L Troponin I 0.050 H (0.01-0.034) ng/mL NT-Pro-B Natriuret Pep 587 H (<125) pg/mL Total Protein 7.3 (6.3-8.2) g/dL Albumin 4.2 (3.5-5.0) g/dL Globulin 3.1 (1.7-4.1) g/dL Albumin/Globulin Ratio 1.4 (1.0-2.8) Serum , Qual (Negative) Urine RBC (0-5/HPF) Urine WBC (0-5/HPF) Ur Squamous Epith Cells (0-5/HPF) Urine Bacteria (None) Micro UA Comment Salicylates (<20) mg/dL U Opiates 300ng/mL cut (Negative) Ur Oxycodone Screen (Negative) Urine Methadone Screen (Negative) Acetaminophen (10-30) ug/mL Ur Barbiturates Screen (Negative) U Tricyclic Antidepress (Negative) Ur Phencyclidine Scrn (Negative) Ur Amphetamines Screen (Negative) U Methamphetamines Scrn (Negative) Ur MDMA Scrn (Ecstasy) (Negative) U Benzodiazepines Scrn (Negative) Urine Cocaine Screen (Negative) U Marijuana (THC) Screen (Negative) Ethyl Alcohol ( - 10) mg/dL Chlamy pneumoniae PCR (Not Detect) Adenovirus (PCR) (Not Detect) B. pertussis DNA (PCR) (Not Detecte) B.parapertussis DNA PCR (Not Detecte) Coronavirus OC43 (PCR) (Not Detect) Coronavirus HKU1 (PCR) (Not Detect) Coronavirus 229E (PCR) (Not Detect) SARS-CoV-2 (PCR) (Not Detecte) Coronavirus NL63 (PCR) (Not Detect) Human Metapneumovir PCR (Not Detect) Influenza Type A (PCR) (Not Detect) Influenza Type B (PCR) (Not Detect) M. pneumoniae (PCR) (Not Detect) Parainfluenza 1 (PCR) (Not Detect) Parainfluenza 2 (PCR) (Not Detect) Parainfluenza 3 (PCR) (Not Detect) Parainfluenza 4 (PCR) (Not Detect) RSV (PCR) (Not Detect) Entero/Rhino (PCR) (Not Detect) 01/14/23 01/14/23 01/14/23 Range/Units 20:25 20:25 20:25 WBC (4.5-11.0) X10^3/uL RBC (4.0-5.2) X10^6/uL Hgb (12.0-16.0) g/dL Hct (36-46) % MCV (80-100) fL MCH (26-34) PG MCHC (30-36) % RDW (11.6-14.8) % Plt Count (150-400) X10^3/uL Neut % (Auto) (50-75) % Lymph % (Auto) (25-40) % Hendricks % (Auto) (3-14) % Eos % (Auto) (2-4) % Baso % (Auto) (0-2) % Neut # (Auto) (5653-7686) /uL Lymph # (Auto) (2428-2075) /uL [place] # (Auto) (0-900) /uL Eos # (Auto) (0-450) /uL Baso # (Auto) (0-100) /uL PT (10.1-12.7) SECONDS INR (0.9-1.3) Sodium (137-145) mmol/L Potassium (3.4-5.1) mmol/L Chloride (98-107) mmol/L Carbon Dioxide (22-32) mmol/L BUN (7-17) mg/dL Creatinine (0.52-1.04) mg/dL Estimated GFR (>60) mL/min BUN/Creatinine Ratio (6-22) Glucose (70-100) mg/dL Lactate 9.4 H* (0.7-2.1) mmol/L Calcium (8.4-10.2) mg/dL Total Bilirubin (0.2-1.3) mg/dL AST (14-36) IU/L ALT (<35) IU/L Alkaline Phosphatase (38-126) U/L Troponin I (0.01-0.034) ng/mL NT-Pro-B Natriuret Pep (<125) pg/mL Total Protein (6.3-8.2) g/dL Albumin (3.5-5.0) g/dL Globulin (1.7-4.1) g/dL Albumin/Globulin Ratio (1.0-2.8) Serum , Qual Negative (Negative) Urine RBC (0-5/HPF) Urine WBC (0-5/HPF) Ur Squamous Epith Cells (0-5/HPF) Urine Bacteria (None) Micro UA Comment Salicylates < 1.0 (<20) mg/dL U Opiates 300ng/mL cut (Negative) Ur Oxycodone Screen (Negative) Urine Methadone Screen (Negative) Acetaminophen < 10 (10-30) ug/mL Ur Barbiturates Screen (Negative) U Tricyclic Antidepress (Negative) Ur Phencyclidine Scrn (Negative) Ur Amphetamines Screen (Negative) U Methamphetamines Scrn (Negative) Ur MDMA Scrn (Ecstasy) (Negative) U Benzodiazepines Scrn (Negative) Urine Cocaine Screen (Negative) U Marijuana (THC) Screen (Negative) Ethyl Alcohol ( - 10) mg/dL Chlamy pneumoniae PCR (Not Detect) Adenovirus (PCR) (Not Detect) B. pertussis DNA (PCR) (Not Detecte) B.parapertussis DNA PCR (Not Detecte) Coronavirus OC43 (PCR) (Not Detect) Coronavirus HKU1 (PCR) (Not Detect) Coronavirus 229E (PCR) (Not Detect) SARS-CoV-2 (PCR) (Not Detecte) Coronavirus NL63 (PCR) (Not Detect) Human Metapneumovir PCR (Not Detect) Influenza Type A (PCR) (Not Detect) Influenza Type B (PCR) (Not Detect) M. pneumoniae (PCR) (Not Detect) Parainfluenza 1 (PCR) (Not Detect) Parainfluenza 2 (PCR) (Not Detect) Parainfluenza 3 (PCR) (Not Detect) Parainfluenza 4 (PCR) (Not Detect) RSV (PCR) (Not Detect) Entero/Rhino (PCR) (Not Detect) 01/14/23 01/14/23 01/15/23 Range/Units 20:25 23:22 00:55 WBC 10.3 (4.5-11.0) X10^3/uL RBC 5.03 (4.0-5.2) X10^6/uL Hgb 14.1 (12.0-16.0) g/dL Hct 41.4 (36-46) % MCV 82.4 (80-100) fL MCH 28.0 (26-34) PG MCHC 34.0 (30-36) % RDW 15.0 H (11.6-14.8) % Plt Count 178 (150-400) X10^3/uL Neut % (Auto) 85.7 H D (50-75) % Lymph % (Auto) 9.7 L D (25-40) % Hendricks % (Auto) 3.7 (3-14) % Eos % (Auto) 0.5 L (2-4) % Baso % (Auto) 0.4 (0-2) % Neut # (Auto) 8800 H (2755-1722) /uL Lymph # (Auto) 1000 L (6229-5609) /uL [place] # (Auto) 400 (0-900) /uL Eos # (Auto) 0 (0-450) /uL Baso # (Auto) 0 (0-100) /uL PT (10.1-12.7) SECONDS INR (0.9-1.3) Sodium (137-145) mmol/L Potassium (3.4-5.1) mmol/L Chloride (98-107) mmol/L Carbon Dioxide (22-32) mmol/L BUN (7-17) mg/dL Creatinine (0.52-1.04) mg/dL Estimated GFR (>60) mL/min BUN/Creatinine Ratio (6-22) Glucose (70-100) mg/dL Lactate (0.7-2.1) mmol/L Calcium (8.4-10.2) mg/dL Total Bilirubin (0.2-1.3) mg/dL AST (14-36) IU/L ALT (<35) IU/L Alkaline Phosphatase (38-126) U/L Troponin I (0.01-0.034) ng/mL NT-Pro-B Natriuret Pep (<125) pg/mL Total Protein (6.3-8.2) g/dL Albumin (3.5-5.0) g/dL Globulin (1.7-4.1) g/dL Albumin/Globulin Ratio (1.0-2.8) Serum , Qual (Negative) Urine RBC (0-5/HPF) Urine WBC (0-5/HPF) Ur Squamous Epith Cells (0-5/HPF) Urine Bacteria (None) Micro UA Comment Salicylates (<20) mg/dL U Opiates 300ng/mL cut (Negative) Ur Oxycodone Screen (Negative) Urine Methadone Screen (Negative) Acetaminophen (10-30) ug/mL Ur Barbiturates Screen (Negative) U Tricyclic Antidepress (Negative) Ur Phencyclidine Scrn (Negative) Ur Amphetamines Screen (Negative) U Methamphetamines Scrn (Negative) Ur MDMA Scrn (Ecstasy) (Negative) U Benzodiazepines Scrn (Negative) Urine Cocaine Screen (Negative) U Marijuana (THC) Screen (Negative) Ethyl Alcohol < 10 ( - 10) mg/dL Chlamy pneumoniae PCR Not detected (Not Detect) Adenovirus (PCR) Not detected (Not Detect) B. pertussis DNA (PCR) Not detected (Not Detecte) B.parapertussis DNA PCR Not detected (Not Detecte) Coronavirus OC43 (PCR) Not detected (Not Detect) Coronavirus HKU1 (PCR) Not detected (Not Detect) Coronavirus 229E (PCR) Not detected (Not Detect) SARS-CoV-2 (PCR) Not detected (Not Detecte) Coronavirus NL63 (PCR) Not detected (Not Detect) Human Metapneumovir PCR Not detected (Not Detect) Influenza Type A (PCR) Not detected (Not Detect) Influenza Type B (PCR) Not detected (Not Detect) M. pneumoniae (PCR) Not detected (Not Detect) Parainfluenza 1 (PCR) Not detected (Not Detect) Parainfluenza 2 (PCR) Not detected (Not Detect) Parainfluenza 3 (PCR) Not detected (Not Detect) Parainfluenza 4 (PCR) Not detected (Not Detect) RSV (PCR) Not detected (Not Detect) Entero/Rhino (PCR) Detected H (Not Detect) 01/15/23 01/15/2323 Range/Units 00:55 00:55 04:15 WBC (4.5-11.0) X10^3/uL RBC (4.0-5.2) X10^6/uL Hgb (12.0-16.0) g/dL Hct (36-46) % MCV (80-100) fL MCH (26-34) PG MCHC (30-36) % RDW (11.6-14.8) % Plt Count (150-400) X10^3/uL Neut % (Auto) (50-75) % Lymph % (Auto) (25-40) % Hendricks % (Auto) (3-14) % Eos % (Auto) (2-4) % Baso % (Auto) (0-2) % Neut # (Auto) (5109-0912) /uL Lymph # (Auto) (2996-1339) /uL Hendricks # (Auto) (0-900) /uL Eos # (Auto) (0-450) /uL Baso # (Auto) (0-100) /uL PT (10.1-12.7) SECONDS INR (0.9-1.3) Sodium 137 (137-145) mmol/L Potassium 3.6 (3.4-5.1) mmol/L Chloride 103 (98-107) mmol/L Carbon Dioxide 25 (22-32) mmol/L BUN 20 H (7-17) mg/dL Creatinine 0.80 (0.52-1.04) mg/dL Estimated GFR > 60 (>60) mL/min BUN/Creatinine Ratio 25.0 H (6-22) Glucose 82 D (70-100) mg/dL Lactate 2.7 H (0.7-2.1) mmol/L Calcium 7.8 L (8.4-10.2) mg/dL Total Bilirubin (0.2-1.3) mg/dL AST (14-36) IU/L ALT (<35) IU/L Alkaline Phosphatase (38-126) U/L Troponin I (0.01-0.034) ng/mL NT-Pro-B Natriuret Pep (<125) pg/mL Total Protein (6.3-8.2) g/dL Albumin (3.5-5.0) g/dL Globulin (1.7-4.1) g/dL Albumin/Globulin Ratio (1.0-2.8) Serum , Qual (Negative) Urine RBC (0-5/HPF) Urine WBC (0-5/HPF) Ur Squamous Epith Cells (0-5/HPF) Urine Bacteria (None) Micro UA Comment Salicylates (<20) mg/dL U Opiates 300ng/mL cut Negative (Negative) Ur Oxycodone Screen Negative (Negative) Urine Methadone Screen Negative (Negative) Acetaminophen (10-30) ug/mL Ur Barbiturates Screen Negative (Negative) U Tricyclic Antidepress Negative (Negative) Ur Phencyclidine Scrn Negative (Negative) Ur Amphetamines Screen Negative (Negative) U Methamphetamines Scrn Negative (Negative) Ur MDMA Scrn (Ecstasy) Negative (Negative) U Benzodiazepines Scrn Negative (Negative) Urine Cocaine Screen Negative (Negative) U Marijuana (THC) Screen Negative (Negative) Ethyl Alcohol ( - 10) mg/dL Chlamy pneumoniae PCR (Not Detect) Adenovirus (PCR) (Not Detect) B. pertussis DNA (PCR) (Not Detecte) B.parapertussis DNA PCR (Not Detecte) Coronavirus OC43 (PCR) (Not Detect) Coronavirus HKU1 (PCR) (Not Detect) Coronavirus 229E (PCR) (Not Detect) SARS-CoV-2 (PCR) (Not Detecte) Coronavirus NL63 (PCR) (Not Detect) Human Metapneumovir PCR (Not Detect) Influenza Type A (PCR) (Not Detect) Influenza Type B (PCR) (Not Detect) M. pneumoniae (PCR) (Not Detect) Parainfluenza 1 (PCR) (Not Detect) Parainfluenza 2 (PCR) (Not Detect) Parainfluenza 3 (PCR) (Not Detect) Parainfluenza 4 (PCR) (Not Detect) RSV (PCR) (Not Detect) Entero/Rhino (PCR) (Not Detect) 01/15/23 Range/Units 04:15 WBC (4.5-11.0) X10^3/uL RBC (4.0-5.2) X10^6/uL Hgb (12.0-16.0) g/dL Hct (36-46) % MCV (80-100) fL MCH (26-34) PG MCHC (30-36) % RDW (11.6-14.8) % Plt Count (150-400) X10^3/uL Neut % (Auto) (50-75) % Lymph % (Auto) (25-40) % Hendricks % (Auto) (3-14) % Eos % (Auto) (2-4) % Baso % (Auto) (0-2) % Neut # (Auto) (5904-7207) /uL Lymph # (Auto) (3054-1995) /uL Hendricks # (Auto) (0-900) /uL Eos # (Auto) (0-450) /uL Baso # (Auto) (0-100) /uL PT (10.1-12.7) SECONDS INR (0.9-1.3) Sodium (137-145) mmol/L Potassium (3.4-5.1) mmol/L Chloride (98-107) mmol/L Carbon Dioxide (22-32) mmol/L BUN (7-17) mg/dL Creatinine (0.52-1.04) mg/dL Estimated GFR (>60) mL/min BUN/Creatinine Ratio (6-22) Glucose (70-100) mg/dL Lactate (0.7-2.1) mmol/L Calcium (8.4-10.2) mg/dL Total Bilirubin (0.2-1.3) mg/dL AST (14-36) IU/L ALT (<35) IU/L Alkaline Phosphatase (38-126) U/L Troponin I (0.01-0.034) ng/mL NT-Pro-B Natriuret Pep (<125) pg/mL Total Protein (6.3-8.2) g/dL Albumin (3.5-5.0) g/dL Globulin (1.7-4.1) g/dL Albumin/Globulin Ratio (1.0-2.8) Serum , Qual (Negative) Urine RBC None seen (0-5/HPF) Urine WBC 1-5/hpf (0-5/HPF) Ur Squamous Epith Cells None seen (0-5/HPF) Urine Bacteria Moderate (10-30) H (None) Micro UA Comment * Salicylates (<20) mg/dL U Opiates 300ng/mL cut (Negative) Ur Oxycodone Screen (Negative) Urine Methadone Screen (Negative) Acetaminophen (10-30) ug/mL Ur Barbiturates Screen (Negative) U Tricyclic Antidepress (Negative) Ur Phencyclidine Scrn (Negative) Ur Amphetamines Screen (Negative) U Methamphetamines Scrn (Negative) Ur MDMA Scrn (Ecstasy) (Negative) U Benzodiazepines Scrn (Negative) Urine Cocaine Screen (Negative) U Marijuana (THC) Screen (Negative) Ethyl Alcohol ( - 10) mg/dL Chlamy pneumoniae PCR (Not Detect) Adenovirus (PCR) (Not Detect) B. pertussis DNA (PCR) (Not Detecte) B.parapertussis DNA PCR (Not Detecte) Coronavirus OC43 (PCR) (Not Detect) Coronavirus HKU1 (PCR) (Not Detect) Coronavirus 229E (PCR) (Not Detect) SARS-CoV-2 (PCR) (Not Detecte) Coronavirus NL63 (PCR) (Not Detect) Human Metapneumovir PCR (Not Detect) Influenza Type A (PCR) (Not Detect) Influenza Type B (PCR) (Not Detect) M. pneumoniae (PCR) (Not Detect) Parainfluenza 1 (PCR) (Not Detect) Parainfluenza 2 (PCR) (Not Detect) Parainfluenza 3 (PCR) (Not Detect) Parainfluenza 4 (PCR) (Not Detect) RSV (PCR) (Not Detect) Entero/Rhino (PCR) (Not Detect) Urine Dip Bedside Urine Glucose 500 mg/dl Bedside Urine Bilirubin - Negative Bedside Urine Ketone ++ 40 Urine Specific [place] 1.030 Bedside Urine Occult Blood - Negative Bedside Urine pH 6.0 Bedside Urine Protein +/- 15 Bedside Urine Urobilinogen - Negative Bedside Urine Nitrite - Negative Bedside Urine Leukocytes - Negative Esterase Point of care testing: Urine Dip Bedside Urine Glucose 500 mg/dl Bedside Urine Bilirubin - Negative Bedside Urine Ketone ++ 40 Urine Specific [place] 1.030 Bedside Urine Occult Blood - Negative Bedside Urine pH 6.0 Bedside Urine Protein +/- 15 Bedside Urine Urobilinogen - Negative Bedside Urine Nitrite - Negative Bedside Urine Leukocytes - Negative Esterase Imaging Data Chest x-ray: Radiologist's Impression: PROCEDURE:? XR CHEST 1V ? INDICATIONS:? Shortness of breath ? TECHNIQUE:? One view of the chest was acquired.? ? COMPARISON:? [facility], , CHEST 2 VIEW, 07/18/2010, 9:27. ? FINDINGS:? ? Surgical changes and devices:? None.? ? Lungs and pleura:? Lungs are clear.? No pleural effusions or pneumothorax.? ? Mediastinum:? Mediastinal contours appear normal.? Heart size is normal.? ? Bones and chest wall:? No suspicious bony lesions.? There are few oval densities projecting over the left hemithorax which are likely external. ? IMPRESSION:? ? 1.? No acute cardiopulmonary disease. CT scan - head: Radiologist's Impression: PROCEDURE:? CT HEAD/BRAIN WO CON ? INDICATIONS:? AMS with headache ? TECHNIQUE:? Noncontrast 4.5 mm thick angled axial sections acquired from the foramen magnum to the vertex, with coronal and sagittal reformats.? For radiation dose reduction, the following was used:? automated exposure control, adjustment of mA and/or kV according to patient size.? ? COMPARISON:? [facility], CT, HEAD WITHOUT CONTRAST, 10/16/2009, 19:27. ? FINDINGS:? Image quality:? Excellent.? ? CSF spaces:? Basal cisterns are patent.? No extra-axial fluid collections.? Ventricles are normal in size and shape.? ? Brain:? No intracranial hemorrhage, mass, or mass effect.? Ramachandran-white matter interface appears preserved.? ? Skull and face:? Calvarium and visualized facial bones are intact, without suspicious lesions.? ? Sinuses:? Visualized sinuses demonstrate bilateral mild mucosal thickening with scattered air-fluid levels in the ethmoid, sphenoid, and maxillary sinuses.? Mastoid air cells are clear. ? IMPRESSION:? ? 1. No acute intracranial abnormality. ? 2. Sinus mucosal disease with bilateral air-fluid levels suggestive of acute sinusitis.? ECG Data Attestation: I personally reviewed and interpreted this ECG as follows: Interpretation: Sinus tachycardia Ventricular rate 102 Normal axis Normal QRS Normal QTC No ST T wave changes MDM Narrative Medical decision making narrative: Patient is unable to provide any HPI. She had minimal respirations with mottled blue skin. She was immediately moved from the wheelchair into the gurney. Patient was provided oxygen. Bag-valve mask was started. Initial oxygen saturations were 51%. This improved with bag-valve mask to the mid 90s. There is no signs of trauma. Patient did have pupils that were 2 mm and equal bilateral. She was given an initial dose of 0.8 mg of Narcan. No real significant improvement of the symptoms. A nasal airway was placed. She was given another 0.8 mg of Narcan. We were preparing for intubation when the patient started to improve. Was making purposeful movements. Started to have more pronounced and affective respirations. She did vomit several times afterwards. She continued to regain consciousness. She was able to protect her airway. Was able to follow commands. We then questioned her about her presentation. She states she is unsure as to what happened. She denied taking anything. She is no pain except for a headache. She is still having some nausea. She denied any alcohol use. Denied taking any drugs. Her head CT is unremarkable. Chest x-ray is unremarkable. Lactate initially elevated but this improved with fluids and time and I suspect that this is because of the way that she presented. Patient also had leukocytosis upon arrival which on repeat lab test was negative. Once again I suspect this was a stress reaction. She is positive for rhino virus but is afebrile. I have low suspicion that this is sepsis. Low suspicion that this is a seizure. Low suspicion this is trauma. Have a very high suspicion that this is an overdose. We will continue to monitor the patient. Patient improved. She is alert oriented x3. She still is unable to recall what happened last evening. Patient is able to tolerate oral intake. Is able to ambulate. Will discharge patient Critical Care Time Critical Care Time Critical Care Time: Yes Total Critical Care Time: 45 Attestation: The high probability of a clinically significant, sudden or life threatening deterioration of the [respiratory, cardiovascular] system(s) required my full and direct attention, intervention and personal management. The aggregate critical care time was [45] minutes. This time is in addition to time spent performing reported procedures but includes the following: [x] Data Review and interpretation x[] Patient assessment and monitoring of vital signs [x] Documentation [x] Medication orders and management Discharge Plan Departure Patient Disposition: Home Clinical Impression: Change in mental status, Respiratory distress Activity Restrictions/Additional Instructions: I recommend that you continue to take any medications as directed. Return to the emergency department for new or worsening symptoms. Prescriptions: No Action Ortho-Novum (28) 0.5/0.75/1 mg- 35 mcg tablet 1 tab PO DAILY Qty: 28 12RF venlafaxine [Effexor XR] 150 mg capsule,extended release 24hr 150 mg PO DAILY MDD 150 mg Qty: 1 0RF Referrals: Murtaza Mendez MD [Primary Care Provider] - Stand Alone Forms: Patient Portal/API, Work Release Note
[2023-01-14 22:47] LABS: Add Manual Diff / Slide Review NO; Basophils Absolute Auto 100 /uL (0-100); Basophils Percent Auto 0.6 % (0-2); Eosinophils Absolute Auto 500 /uL (0-450); Eosinophils Percent Auto 2.7 % (2-4); Hematocrit 39.7 % (36-46); Hemoglobin 12.8 g/dL (12.0-16.0); Lymphocytes Absolute Auto 8700 /uL (1100-4500); Mean Corpuscular HGB Conc 32.1 % (30-36); Mean Corpuscular Hemoglobin 27.2 PG (26-34); Mean Corpuscular Volume 84.7 fL (80-100); Monocytes Absolute Auto 1700 /uL (0-900); Monocytes Percent Auto 8.9 % (3-14); Neutrophils Absolute Auto 7600 /uL (1500-7000); Neutrophils Percent Auto 40.8 % (50-75); Platelet Count 250 X10^3/uL (150-400); Red Blood Cell Count 4.69 X10^6/uL (4.0-5.2); Red Cell Distribution Width 15.1 % (11.6-14.8); White Blood Cell Count 18.5 X10^3/uL (4.5-11.0)
[2023-01-14 22:51] LABS: Alanine Aminotransferase 52 IU/L (<35); Albumin 4.2 g/dL (3.5-5.0); Albumin Globulin Ratio 1.4 (1.0-2.8); Alkaline Phosphatase 49 U/L (38-126); Aspartate Aminotransferase 69 IU/L (14-36); BUN Creatinine Ratio 16.8 (6-22); Bilirubin Total 0.3 mg/dL (0.2-1.3); Blood Urea Nitrogen 18 mg/dL (7-17); Calcium 8.4 mg/dL (8.4-10.2); Carbon Dioxide 16 mmol/L (22-32); Chloride 99 mmol/L (98-107); Estimated Glomerular Filt Rate > 60 mL/min (>60); Globulin 3.1 g/dL (1.7-4.1); Glucose 348 mg/dL (70-100); HEMOLYSIS 17 (0-50); Potassium 4.7 mmol/L (3.4-5.1); Sodium 133 mmol/L (137-145); Total Protein 7.3 g/dL (6.3-8.2)
[2023-01-14 22:58] LABS: Lactate (Lactic Acid) 9.4 mmol/L (0.7-2.1)
[2023-01-14 22:59] LABS: Pregnancy Test Serum,Qual Negative (Negative)
[2023-01-14 23:01] LABS: Acetaminophen < 10 ug/mL (10-30); Salicylate < 1.0 mg/dL (<20)
[2023-01-14 23:02] LABS: Ethanol (ETOH) < 10 mg/dL
[2023-01-14 23:03] LABS: NT-proBNP (BNP-Adult 18+) 587 pg/mL (<125)
--- NOTE | 2023-01-14 23:19 | DI.CT.S_ITS ---
PROCEDURE: CT HEAD/BRAIN WO CON INDICATIONS: AMS with headache TECHNIQUE: Noncontrast 4.5 mm thick angled axial sections acquired from the foramen magnum to the vertex, with coronal and sagittal reformats. For radiation dose reduction, the following was used: automated exposure control, adjustment of mA and/or kV according to patient size. COMPARISON: [facility], CT, HEAD WITHOUT CONTRAST, 10/16/2009, 19:27. FINDINGS: Image quality: Excellent. CSF spaces: Basal cisterns are patent. No extra-axial fluid collections. Ventricles are normal in size and shape. Brain: No intracranial hemorrhage, mass, or mass effect. Ramachandran-white matter interface appears preserved. Skull and face: Calvarium and visualized facial bones are intact, without suspicious lesions. Sinuses: Visualized sinuses demonstrate bilateral mild mucosal thickening with scattered air-fluid levels in the ethmoid, sphenoid, and maxillary sinuses. Mastoid air cells are clear. IMPRESSION: 1. No acute intracranial abnormality. 2. Sinus mucosal disease with bilateral air-fluid levels suggestive of acute sinusitis. Dictated by: Rahul Leonard M.D. on 01/14/2023 at 23:57 Approved by: Rahul Leonard M.D. on 01/14/2023 at 23:58
[2023-01-15] VITALS (17 sets, daily range): BP systolic 96–122; BP diastolic 55–72; PULSE 95–115; RESP 14–19; O2SAT 90–99
[2023-01-15 00:27] LABS: Adenovirus Not Detected (Not Detect); B. parapertussis Not Detected (Not Detecte); Bordetella pertussis Not Detected (Not Detecte); Chlamydophila pneumoniae Not Detected (Not Detect); Coronavirus 229E Not Detected (Not Detect); Coronavirus HKU1 Not Detected (Not Detect); Coronavirus NL 63 Not Detected (Not Detect); Coronavirus OC43 Not Detected (Not Detect); Human Metapneumovirus Not Detected (Not Detect); Human Rhinovirus/Enterovirus Detected (Not Detect); Influenza A Not Detected (Not Detect); Influenza B Not Detected (Not Detect); Mycoplasma pneumoniae Not Detected (Not Detect); Parainfluenza Virus 1 Not Detected (Not Detect); Parainfluenza Virus 2 Not Detected (Not Detect); Parainfluenza Virus 3 Not Detected (Not Detect); Parainfluenza Virus 4 Not Detected (Not Detect); Respiratory Syncytial Virus Not Detected (Not Detect); SARS- CoV-2 Not Detected (Not Detecte)
[2023-01-15 00:39] LABS: Reflexed Lactate in 2 Hours Y
[2023-01-15 01:20] LABS: Lactate 2HR (Lactic Acid Rflx) 2.7 mmol/L (0.7-2.1)
--- NOTE | 2023-01-15 01:44 | PC.NURSE ---
Walt (Pt's spouse) called again, he was updated on plan of care. He has no further questions at this time.
[2023-01-15] MEDS: SODIUM CHLORIDE 0.9% 1,000 ML 1000 ML IV (01:45)
[2023-01-15 01:49] LABS: Add Manual Diff / Slide Review NO; Basophils Absolute Auto 0 /uL (0-100); Basophils Percent Auto 0.4 % (0-2); Eosinophils Absolute Auto 0 /uL (0-450); Eosinophils Percent Auto 0.5 % (2-4); Hematocrit 41.4 % (36-46); Hemoglobin 14.1 g/dL (12.0-16.0); Lymphocytes Absolute Auto 1000 /uL (1100-4500); Lymphocytes Percent Auto 9.7 % (25-40); Mean Corpuscular Volume 82.4 fL (80-100); Monocytes Absolute Auto 400 /uL (0-900); Monocytes Percent Auto 3.7 % (3-14); Neutrophils Absolute Auto 8800 /uL (1500-7000); Neutrophils Percent Auto 85.7 % (50-75); Platelet Count 178 X10^3/uL (150-400); Red Blood Cell Count 5.03 X10^6/uL (4.0-5.2); White Blood Cell Count 10.3 X10^3/uL (4.5-11.0)
[2023-01-15] MEDS: ONDANSETRON 4 MG/2 ML INJ IV (01:55)
[2023-01-15 02:04] LABS: Blood Urea Nitrogen 20 mg/dL (7-17); Calcium 7.8 mg/dL (8.4-10.2); Carbon Dioxide 25 mmol/L (22-32); Chloride 103 mmol/L (98-107); Estimated Glomerular Filt Rate > 60 mL/min (>60); Glucose 82 mg/dL (70-100); HEMOLYSIS 20 (0-50); Potassium 3.6 mmol/L (3.4-5.1); Sodium 137 mmol/L (137-145)
[2023-01-15 04:28] LABS: UR Morphine/Opiate cutoff 300 Negative (Negative); Ur Creatinine 20 (Normal); Ur Specific Gravity >1.030 (Normal); Urine Amphetamines Negative (Negative); Urine Barbiturates Negative (Negative); Urine Cocaine Negative (Negative); Urine MDMA Negative (Negative); Urine Methamphetamines Negative (Negative); Urine Phencyclidine Negative (Negative); Urine Tetrahydrocannabinol Negative (Negative); Urine pH 5 (Normal)
[2023-01-15 04:29] LABS: Urine Benzodiazepines Negative (Negative); Urine Methadone Negative (Negative); Urine Oxycodone Negative (Negative); Urine Tricyclic Antidepressant Negative (Negative)
[2023-01-15 04:35] LABS: RBC Urine None Seen (0-5/HPF)
[2023-01-15 04:36] LABS: Bacteria Urine Moderate (10-30); Squamous Epithelial Cell Urine None Seen (0-5/HPF); WBC Urine 1-5/HPF (0-5/HPF)
== END 2023-01-15 06:15 | disposition home or self-care (01) ==
PROVIDERS: Emergency Provider Emergency Medicine; PCP Obstetrics & Gynecology
DX: R41.82 Altered mental status, unspecified (principal); R06.03 Acute respiratory distress; R51.9 Headache, unspecified; Z20.822 Contact with and (suspected) exposure to COVID-19
CPT/HCPCS: 36415; 70450; 71045; 80048; 80053; 80305; 80320; 80329; 81003; 81015; 83605; 83880; 84484; 84703; 85025; 85610; 87086; 87633; 93005; 96361; 96374; 96375; 96376; 99285; 99291; G0480; J2310; J2405

== ENCOUNTER → 2023-05-26 10:25 | Outpatient (CLI) | payer OTHER, MEDICAID, SELFPAY | PROVIDERS: PCP Obstetrics & Gynecology; Referring Provider Family Medicine; Visit Provider Family Medicine | DX: Z23 Encounter for immunization (principal) | CPT/HCPCS: 90471; 90686 ==

== ENCOUNTER → 2023-07-10 16:05 | Outpatient (CLI) | payer OTHER, MEDICAID, SELFPAY ==
--- NOTE | 2023-07-10 16:06 | DI.US.S_ITS ---
PROCEDURE: US PELVIC COMPLETE INDICATIONS: r/o retained products of conception TECHNIQUE: Real-time scanning was performed of the pelvic organs, with image documentation. Additional endovaginal scanning was necessary due to incomplete visualization of the adnexal and endometrial structures by transabdominal scanning. COMPARISON: None. FINDINGS: Uterus: Uterus is anteverted and normal in size at 7.8 x 6.7 x 4.9 cm. The myometrium is homogeneous. The endometrium measures 18.8 mm combined thickness. The endometrium is thickened, heterogeneous with increased vascularity. Ovaries: The right ovary measures 3.8 x 2.6 x 1.9 cm, with a calculated ovarian volume of 9.8 cc. The left ovary measures 3.2 x 2.7 x 1.9 cm, with a calculated ovarian volume of 8.6 cc. The ovaries have a normal sonographic appearance. Less than 12 follicles can be seen in each ovary. No adnexal masses are seen. Other: No pathologic free abdominal or pelvic fluid. IMPRESSION: Thickened and heterogeneous endometrium with increased vascularity, concerning for retained products of conception. We strive to produce accurate, complete, and clear reports of imaging services. To assist us in improving patient care, this report was composed using standard report templates and voice recognition software. Therefore, it may contain abnormal punctuation, insertions and/or omissions. Occasional wrong-word or sound-alike substitutions may occur. Though we review the report and make efforts to correct it, we do recommend that the report be read carefully in proper context to recognize any text inaccuracies. Dictated by: Vega Sommer M.D. on 07/10/2023 at 16:51 Approved by: Vega Sommer M.D. on 07/10/2023 at 16:53
== END ==
PROVIDERS: Referring Provider Specialist; Visit Provider Specialist
DX: N93.9 Abnormal uterine and vaginal bleeding, unspecified (principal); R93.89 Abnormal findings on diagnostic imaging of other specified body structures
CPT/HCPCS: 76830; 76856